=== PATIENT | female | born 1945 | race Caucasian/White ===

== ENCOUNTER 2022-05-03 20:55 | Emergency (ER) | payer MEDICARE, BC ==
[2022-05-03] MEDS ORDERED: Benzonatate 100 MG CAP ONE (21:30)
[2022-05-03] MEDS ORDERED: Oseltamivir 75 MG CAP ONE (21:30)
[2022-05-03] MEDS ORDERED: Ibuprofen 800 MG TAB ONE (21:30)
== END 2022-05-03 21:37 | disposition home or self-care (01) ==
LOC: BURERS 20:55
DX: J11.1 Influenza due to unidentified influenza virus with other respiratory manifestations (principal); E78.5 Hyperlipidemia, unspecified; E78.00 Pure hypercholesterolemia, unspecified; I10 Essential (primary) hypertension
CPT/HCPCS: 99283

== ENCOUNTER 2022-11-07 15:33 | Outpatient (CLI) | payer MEDICARE, BC | END 2022-11-07 15:34 | disposition home or self-care (01) | LOC: BURRAD 15:33 | PROVIDERS: ATTEND Nurse Practitioner Family | DX: U07.1 COVID-19 (principal) | CPT/HCPCS: 71046 ==